=== PATIENT | male | born 1990 | race African-American/Black ===

== ENCOUNTER 2016-12-26 16:53 | Emergency (ER) | payer OTHER ==
[2016-12-26 17:17] VITALS: BP 150/99; PULSE 96; TEMP 98; BMI 39.5
--- NOTE | 2016-12-26 18:25 | PDOC ---
History of Present Illness - General Chief Complaint: Chest Pain Stated Complaint: chest pain Time Seen by Provider: 12/26/16 17:39 History Source: Patient Exam Limitations: No Limitations - History of Present Illness Initial Comments: 12/26/16 18:19 Here after ingesting some food from a restaurant for evaluation of mild abdominal pain and questionable foreign body ingestion. States he bought some lunch, noticed a string and when he pulled string from his mouth. Aide himself gag, and vomited remainder of this string. Appeared consistent with a dish scrubber that is nylon and metal consistency. Denies sore throat, denies any breathing problems, no swelling to throat or tongue. Chest pain cough or any other problems. 12/26/16 18:23 Timing/Duration: unsure Severity: moderate Associated Symptoms: reports: denies symptoms, malaise. denies: cough, fever/ chills, headaches Past History - Travel Traveled outside of the country in the last 30 days: No Close contact w/someone who was outside of country & ill: No - Past Medical History Allergies/Adverse Reactions: Allergies Allergy/AdvReac Type Severity Reaction Status Date / Time No Known Allergies Allergy Verified 12/26/16 17:02 Home Medications: Ambulatory Orders Cetirizine HCl/Pseudoephedrine [Eql All Day Allergy-D Tablet] 1 each PO DAILY # 30 tab.er.12h 12/26/16 - Psycho/Social/Smoking Cessation Hx Suicidal Ideation: No Smoking History: Never smoked Information on smoking cessation initiated: No Hx Alcohol Use: No Drug/Substance Use Hx: No Substance Use Type: None Review of Systems - Review of Systems Able to Perform ROS?: Yes Is the patient limited Swedish proficient: Yes Constitutional: Yes: Symptoms Reported, See HPI, Malaise. No: Fever HEENTM: Yes: See HPI. No: Symptoms Reported, Eye Pain Respiratory: No: Symptoms reported Cardiac (ROS): No: Symptoms Reported ABD/GI: Yes: See HPI. No: Symptoms Reported All Other Systems: Reviewed and Negative *Physical Exam - Vital Signs Last Vital Signs Temp Pulse Resp BP Pulse Ox 98 F 96 H 18 150/99 98 12/26/16 17:00 12/26/16 17:00 12/26/16 17:00 12/26/16 17:00 12/26/16 17:00 12/26/16 18:25 - Physical Exam General Appearance: Yes: Nourished, Appropriately Dressed, Apparent Distress HEENT: positive: SAVITA, TMs Normal, Pharynx Normal (redness, swelling, however has copious posterior sinus drainage consistent with ALLERGIC rhinitis and sinus drainage. Airway is patent) Neck: positive: Tender, Supple. negative: Lymphadenopathy (R), Lymphadenopathy (L) (no redness, swelling, exudates) Respiratory/Chest: positive: Lungs Clear, Normal Breath Sounds Gastrointestinal/Abdominal: positive: Normal Bowel Sounds, Soft. 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 intact, Fully Oriented, Alert, Normal Mood/ Affect, Normal Response, Motor Strength 12/16 *DC/Admit/Observation/Transfer Diagnosis at time of Disposition: Foreign body ingestion Qualifiers: Encounter type: initial encounter Qualified Code(s): T18.9XXA - Foreign body of alimentary tract, part unspecified, initial encounter Allergic rhinitis Qualifiers: Allergic rhinitis trigger: unspecified Allergic rhinitis seasonality: unspecified seasonality Qualified Code(s): J30.9 - Allergic rhinitis, unspecified - Discharge Dispostion Disposition: HOME Condition at time of disposition: Stable Admit: No - Patient Instructions Printed Discharge Instructions: DI for Allergic Rhinitis Additional Instructions: Rest, drink lots of fluids: Teas, water, soups May try peppermint teas Avoid heavy , spicy or fatty foods until symptoms have resolved Avoid contact with others until fevers and symptoms resolved Lots of handwashing and good hygiene Continue [id number] medications for symptomatic relief Tylenol or Motrin for fever and pain Followup with private physician in one to 2 days as needed Return to emergency department for worsened symptoms, fevers, dehydration - Post Discharge Activity Work/School Note: Back to Work
--- NOTE | 2016-12-27 17:12 | EKG ---
Test Reason : Blood Pressure : / mmHG Vent. Rate : 089 BPM Atrial Rate : 089 BPM P-R Int : 152 ms QRS Dur : 104 ms QT Int : 350 ms P-R-T Axes : 064 -05 035 degrees QTc Int : 425 ms NORMAL SINUS RHYTHM INCOMPLETE RIGHT BUNDLE BRANCH BLOCK BORDERLINE ECG NO PREVIOUS ECGS AVAILABLE Confirmed by LEIA LI MD ([id number]) on 12/27/2016 5:11:55 PM Referred By: Confirmed By:LEIA LI MD
== END 2016-12-26 18:38 | disposition home or self-care (01) ==
LOC: JERFT 16:53 → JER 16:53 → JERFT 18:38
DX: T18.0XXA Foreign body in mouth, initial encounter (principal); X58.XXXA Exposure to other specified factors, initial encounter; Y93.89 Activity, other specified; Y92.511 Restaurant or cafe as the place of occurrence of the external cause; J30.89 Other allergic rhinitis
CPT/HCPCS: 93005; 93010; 99281-25